=== PATIENT | male | born 1955 | race Caucasian/White ===

== ENCOUNTER 2024-09-11 12:04 | Emergency (ER) | payer BC, MEDICARE ==
[~2024-09-11] VITALS: Ht 188 cm; Wt 81.8 kg
[~2024-09-11 12:04] MED LIST: ASPI-845 PO; CALC-815 PO; CETI-90 PO; IBUP-1984 PO; MONT-40 PO; OLME20TA74 PO; VALA500T41 PO
[2024-09-11 12:12] VITALS: TEMP 97.5
[2024-09-11 13:27] VITALS: BP 149/91; PULSE 59; RESP 15; O2SAT 100
--- NOTE | 2024-09-11 14:30 | Physician Documentation ---
History of Present Illness ~ Chief Complaint: Laceration Stated Complaint: LAC LT HAND Time Seen by MD: 14:03 OK to notify your PCP?: Yes Primary Medical Doctor: bonnie Source: patient Mode of Arrival: POV Exam Limitations: no limitations HPI 68-year-old male presents with laceration to the top of his left hand after skinning a rabbit and the knife slipped. He does not remember when his last tetanus vaccine was. Bleeding is controlled with pressure and dressing. He does not take any anticoagulants. Tetanus Within 5 Years: No (YES BUT NOT IN THE LAST 5 YEARS) Medication Reconciliation Allergies: Coded Allergies: No Known Allergies (Unverified , 09/11/24) Scheduled Aspirin (Aspirin EC), 1 TABLET PO DAILY, (Reported) Calcium Carb/Magnesium Cmb #10 (Anant-Mag Tablet Chewable), 1 TAB PO DAILY, (Reported) Cetirizine HCl (Zyrtec), 1 TABLET PO DAILY, (Reported) Montelukast Sodium (Montelukast Sodium), 10 MG PO DAILY, (Reported) Olmesartan Medoxomil (Benicar), 20 MG PO DAILY, (Reported) Valacyclovir HCl (Valacyclovir), 500 MG PO DAILY, (Reported) Scheduled PRN Ibuprofen* (Motrin*), 1 TABLET PO Q6H PRN for pain, (Reported) Past Medical History Past Medical History: Hypertension Past Surgical History: appendectomy, other Patient History: Patient reports no known family medical history. Alcohol Use: Heavy Lives with: Spouse Lives In: Home Review of Systems All Other Systems at this time: Reviewed and Negative Physical Exam Vital Signs: RN Vital Signs have been reviewed: Yes, Temperature: 97.5, Source: Oral, Heart Rate: 59, Respiratory Rate: 15, BP: 149/91, Pulse Oximetry: 100, Weight: 81.820 Oxygen Flow Rate: 0 Pulse Oximetry Reflects: adequate oxygenation Physical Exam General: Alert, no distress. HEENT: No injection, moist mucous membranes. Neck: Full range of motion. Respiratory: No respiratory distress, equal chest rise and fall. Chest: No accessory muscle use. Cardiovascular: Regular rate and rhythm. Gastrointestinal: Nondistended. Extremities: Normal range of motion, no deformity. Neurologic: Oriented x4. Psychiatric: Normal mood and affect. Skin: Superficial laceration approximately 5 cm with the posterior portion of his left hand over the first and 2nd metacarpal. Procedures Laceration/Wound Repair Laceration : Location: Left hand Length (cm): 5 Anesthesia: Lidocaine w/ Epi Volume Anesthetic (mls): 4 Prep: irrigated by nurse Irrigated w/ Saline (mls): 1000 Debrided: minimal Undermining: none Margins: flaps aligned Foreign Body: not identified Repaired: skin Wound Repaired With: sutures Suture Size/Type: 4-0, ethilon Number of Superficial Sutures: 6 Layer Closure?: No Dressing Applied: non-adherent Splint Applied?: No Sling Applied?: No Tolerated Procedure Well?: yes, no complications Progress Results/Orders Results/Orders Orders - MENA VILLEDA Laceration/I&D Tray Set Up (09/11/24 ) * Additional Wound Care Orders (09/11/24 14:21) Completed Orders - MENA VILLEDA Tetanus/Pertuss/Diph Acell/Pf (Boostrix (09/11/24 14:20) Lidocaine 1% W/Epi 1:100,000 (Xylocaine (09/11/24 14:20) Medications Received in ER Medications (Trade) Dose Ordered Sig/Adrián Route PRN Reason Start Time Stop Time Status Last Admin Dose Admin (Boostrix vaccine syringe) 0.5 ml ONCE ONCE IMVAC 09/11/24 14:20 09/11/24 14:22 DC 09/11/24 14:41 0.5 ML Vital Signs 09/11/24 09/11/24 12:12 13:27 Temp 97.5 Pulse 63 59 Resp 18 15 B/P (MAP) 157/85 149/91 (110) Pulse Ox 99 100 O2 Flow Rate 0 Medical Decision Making Additional info obtained from: family Findings 68-year-old male presents with superficial 5cm laceration to left hand. Has full range motion of his fingers, good CSM and good sensation after laceration repair. I placed 6 simple sutures which we discussed we will need to be moved in the next 10 days. I placed him on doxycycline as the knife he used to skin a rub it was the same knife that cut him as well. We discussed monitoring for signs and symptoms of infection and to return and be seen immediately if that occurs. He should follow up with his primary care in the next week and return back here for any new or worsening symptoms. He agrees with this plan. Differential Dx:Considerations: Include: Fracture, Hematoma, Neurovascular injury, Retained foreign body Departure Disposition: 01 HOME / SELF CARE / HOMELESS Impression: Primary Impression: Laceration Condition: Stable Discharge Instructions: Laceration Care, Adult, [id number] Additional Instructions: Keep wound clean and dry. Monitor for any signs of infection such as redness spreading up the arm, fevers, confusion or discharge outside of the wound. You have been placed on antibiotic however if you are having an infection despite the current antibiotic he may need a different 1 so be seen immediately. Suture removal in 10 days, you can return back here, go to your primary care or go to urgent care for removal. Follow up with her primary care provider within the next week and return back here for any new or worsening symptoms. Can use Tylenol for pain relief as needed. Referrals: NO PRIMARY CARE PROVIDER (PCP) Prescriptions Doxycycline Monohydrate (Doxycycline Monohydrate) 100 Mg Capsule 1 CAP PO Q12H for 10 Days, #20 CAP Prov: MENA VILLEDA 09/11/24 Education Educated: Patient Educated regarding: diagnosis, treatment, prognosis, need for follow up Signature Scribe Signature: . Attestation: Scribed for Mena Villdea by Mena Barron NP . 09/11/24 15:42 Parts of this note were created using [employer] voice recognition software program. While efforts were made to correct any mistakes made by this voice recognition software program, nonsensical phrases may remain in this note. In addition, there may be errors and syntax, grammar, content and spelling. MENA VILLEDA Sep 11, 2024 14:30
[2024-09-11] MEDS: TETanus/Pertussis (Acell)/Diphther VAC/PF (Tdap-Adult) 0.5ml syringe IMVAC ONE (14:41)
[2024-09-11] MEDS: LIDOcaine 1% W/epiNEPHrine 1:100,000 20ml vial SQ ONE (14:42)
[2024-09-11] MEDS ORDERED: DOXY-347 PO (15:41)
== END 2024-09-11 15:51 | disposition home or self-care (01) ==
LOC: ER 12:04
DX: S61.412A Laceration without foreign body of left hand, initial encounter (principal); I10 Essential (primary) hypertension; F10.90 Alcohol use, unspecified, uncomplicated; Z90.49 Acquired absence of other specified parts of digestive tract; W26.0XXA Contact with knife, initial encounter; Y93.89 Activity, other specified; Y92.89 Other specified places as the place of occurrence of the external cause; Y99.8 Other external cause status; Y90.9 Presence of alcohol in blood, level not specified
CPT/HCPCS: 12002; 90471; 90715; 99283; A6258; A6449